=== PATIENT | female | born 1960 | race Caucasian/White ===

== ENCOUNTER → 2020-08-11 | Day surgery (SDC) | payer OTHER | END | disposition still patient (30) | LOC: MSO 07:57 | DX: H26.8 Other specified cataract (principal); H04.129 Dry eye syndrome of unspecified lacrimal gland; H40.9 Unspecified glaucoma; I10 Essential (primary) hypertension; F17.210 Nicotine dependence, cigarettes, uncomplicated; Z79.899 Other long term (current) drug therapy | CPT/HCPCS: 00142; J0171; J2250; V2632 ==